=== PATIENT | male | born 1970 | race Caucasian/White ===

== ENCOUNTER 2022-04-11 16:21 | Emergency (ER) | payer BC ==
[2022-04-11] MEDS ORDERED: hydrALAZINE 25 MG TAB ONE (16:43)
[2022-04-11] MEDS ORDERED: predniSONE 20 MG TAB ONE (16:43)
== END 2022-04-11 17:10 | disposition home or self-care (01) ==
LOC: BURERS 16:21
DX: T63.441A Toxic effect of venom of bees, accidental (unintentional), initial encounter (principal)
CPT/HCPCS: 94640; 99284; J7512; J7620

== ENCOUNTER 2023-06-12 15:07 | Emergency (ER) | payer BC ==
[2023-06-12] MEDS ORDERED: Lidocaine 4% Cream 5 GM TUBE w/ Tegaderm ONE (15:55)
[2023-06-12] MEDS ORDERED: Boostrix 0.5 ML (Tdap) VIAL (>/=7 yrs of age) ONE (17:30)
== END 2023-06-12 17:21 | disposition home or self-care (01) ==
LOC: BURERS 15:07
DX: S61.401A Unspecified open wound of right hand, initial encounter (principal); S60.511A Abrasion of right hand, initial encounter; W23.0XXA Caught, crushed, jammed, or pinched between moving objects, initial encounter
CPT/HCPCS: 90471; 90715